=== PATIENT | male | born 1935 | race Caucasian/White ===

== ENCOUNTER 2020-07-04 21:14 | Inpatient (IN) | payer MEDICARE ==
[2020-07-04] MEDS ORDERED: Ondansetron ODT 4 MG TAB PO PRN (22:28)
[2020-07-04] MEDS ORDERED: Aspirin 81 mg Enteric Coated Tablet PO SCH (22:30)
[2020-07-04] MEDS ORDERED: lamoTRIgine 25 MG TAB PO SCH (22:30)
[2020-07-05] MEDS: Acetaminophen 325 MG TAB PO SCH ×4 (01:04→17:45)
[2020-07-05 05:28] LABS: #Lymphocytes 1.3 thou/uL (1.20-3.40); #Monocytes 0.8 thou/uL (0.11-0.59); %Basophils 0.5 % (0.0-1.0); %Eosinophils 0.5 % (0.0-10.0); %Lymphocytes 15.6 % (21.0-51.0); %Monocytes 9.7 % (0.0-10.0); %Neutrophils 73.6 % (42.0-75.0); Hemoglobin 8.9 g/dL (14.0-18.0); Mean Corpuscular HGB CONC 33.5 g/dL (32.0-36.0); Mean Corpuscular Volume 95.6 fL (78.0-98.0); Mean Platelet Volume 6.8 fL (7.4-10.4); Platelet Count 200 thou/uL (130-400); RBC Distribution Width 13.1 % (11.5-14.5); Red Blood Cell (RBC) Count 2.79 mill/uL (4.70-6.10); White Blood Cell (WBC) Count 8.1 thou/uL (4.8-10.8)
[2020-07-05 05:43] LABS: ALT (SGPT) 15 U/L (8-55); AST (SGOT) 39 U/L (5-34); Albumin 3.1 g/dL (3.4-4.8); Alkaline Phosphatase 61 U/L (40-110); Anion Gap 14 mmol/L (10-20); BUN (Urea Nitrogen) 25 mg/dL (8.4-25.7); Bilirubin, Total 0.8 mg/dL (0.2-1.2); Calc. Creatinine Clearance 58 mL/min (70-130); Calcium 8.5 mg/dL (7.8-10.44); Carbon Dioxide 24 mmol/L (23-31); Chloride 102 mmol/L (98-107); Globulin 2.8 g/dL (2.4-3.5); Glucose 98 mg/dL (83-110); Potassium 4.1 mmol/L (3.5-5.1); Protein, Total 5.9 g/dL (5.8-8.1); Sodium 136 mmol/L (136-145)
[2020-07-05] MEDS: Amlodipine 5 MG TAB PO SCH (09:45)
[2020-07-05] MEDS: Cyanocobalamin (Vitamin B-12) 1,000 MCG TAB PO SCH (09:46)
[2020-07-05] MEDS: Cholecalciferol 1,000 UNITS (25 MCG) TAB PO SCH (09:46)
[2020-07-05] MEDS: Folic Acid 1 MG TAB PO SCH (09:46)
[2020-07-05] MEDS: lamoTRIgine 25 MG TAB PO SCH ×2 (09:46→20:26)
[2020-07-05] MEDS: Aspirin 81 mg Enteric Coated Tablet PO SCH ×2 (09:46→20:26)
[2020-07-05] MEDS: Metoprolol Tartrate 25 MG TAB PO SCH (09:47)
[2020-07-05] MEDS: Multivitamin W/ Minerals 1 TAB PO SCH (09:47)
[2020-07-05] MEDS: pyridOXINE 50 MG (B6) TAB PO SCH (09:47)
--- NOTE | 2020-07-05 14:22 | HP ---
PRINCIPAL DIAGNOSIS: Right hip fracture, status post surgical fixation, for therapy. BRIEF HISTORY: Mr. Louie is an 85-year-old patient of mine from [facility], apparently had a fall about a week prior to admission to the hospital. At that time, he did not complain of any pain and his post fall followup protocol apparently was unremarkable. The patient was not eating or drinking well and we did basic labs, which were unremarkable. We even gave him a couple of liters of IV fluids, which did not help. His urine culture was negative, but then he apparently started complaining of hip pain, and so he was sent to the hospital for evaluation. In the hospital, he was diagnosed with right intertrochanteric hip fracture and underwent surgical fixation. He was felt to be a candidate for therapy before he returns to [facility] and so has been brought here. Currently, he is somnolent and sleeping. His daughter is in the room. She states that he was up all day yesterday, ate all his food, he is normally on a mechanically soft diet, but he needs assistance with feeding, and so she is kind of surprised that he is feeling this way. I did advise her that he did come here late last night and not sure if it may be the Seroquel that he got late, but we will continue to monitor him. We did make him n.p.o. just because he did not swallow any of his scrambled eggs this morning, but the daughter wants to sign a waiver if Speech Therapy states that he needs to remain n.p.o. She is agreeable for a pureed diet. PAST MEDICAL HISTORY: 1. Hypertension. 2. Gastroesophageal reflux disease. 3. Dementia. 4. Hearing loss. 5. Generalized weakness. PAST SURGICAL HISTORY: Cervical spine surgery and then now recent right hip intertrochanteric intramedullary nailing. ALLERGIES: TO ARICEPT AND LORAZEPAM. FAMILY HISTORY: Noncontributory to current admission. PSYCHOSOCIAL HISTORY: He currently is a resident at [facility]. No alcohol, tobacco, or recreational drug abuse. He is a DNR. His daughter who is a dairy department manager is his medical POA. REVIEW OF SYSTEMS: The patient is somnolent, and I am not sure how accurate this is, but, GENERAL: The patient has no documented fever, chills, weight loss or weight gain or change in appetite. CARDIOVASCULAR SYSTEM: Denies any chest pain, shortness of breath, palpitations, PND, orthopnea, or pedal edema. RESPIRATORY SYSTEM: Denies any chronic cough, expectoration, or pleuritic-type chest pain. GASTROINTESTINAL SYSTEM: Denies any nausea, vomiting, diarrhea, constipation, hematemesis, melena, or hematochezia. GENITOURINARY SYSTEM: Denies any frequency, urgency, dysuria, or hematuria. CENTRAL NERVOUS SYSTEM: Cognitive deficits, generalized weakness. Otherwise, nonfocal. EXTREMITIES: Occasional joint pain. Currently, does have right hip and leg pain. SKIN: Denies any rash. ENT: So far, daughter states no issues with speech, vision, hearing, or swallowing, no changes. He has chronic hearing loss on the right. MEDICATIONS: He has been sent here on the following medications; 1. Tylenol 650 q.6 scheduled. 2. Norvasc 5 mg daily. 3. Ecotrin 81 mg b.i.d. 4. Vitamin D3, 1000 international units daily. 5. Celexa 20 daily. 6. Vitamin B12, 1000 mcg daily. 7. Folic acid 1 mg daily. 8. Ibuprofen 400 mg q.8 p.r.n. 9. Lamictal 50 mg b.i.d. 10. Levaquin 250 daily, I need to find out the duration. 11. Namenda 10 mg b.i.d. 12. Lopressor 25 daily. 13. Zofran ODT 4 mg q.6 p.r.n. 14. Protonix 40 daily. 15. Pyridoxine 50 mg daily. 16. Seroquel 50 mg at bedtime. 17. Tramadol 100 mg q.6 p.r.n. for pain, 7-10. PHYSICAL EXAMINATION: GENERAL: This is a pleasant, 85-year-old male, who is somnolent, but arousable. He is pleasantly confused. His daughter is in the room. VITAL SIGNS: He is afebrile. Heart rate 72, respirations 18, oxygen saturation 93% on room air and it did drop down to 89, so they did place him on 2 L of oxygen. Blood pressure 155/74. HEENT: Normocephalic and atraumatic. Pupils are equally reactive to light and accommodation. Arcus senilis is present. No JVD, thyromegaly, cervical myopathy, or throat exudates. No carotid bruits. Oropharyngeal mucosa is dry, mostly from his mouth breathing. CARDIOVASCULAR SYSTEM: S1 and S2 plus, rate and rhythm regular. RESPIRATORY SYSTEM: Normal vesicular breath sounds heard in all lung king. ABDOMEN: Soft and nontender. Bowel sounds heard in all quadrants. EXTREMITIES: Without cyanosis or clubbing. Hip incision with dressing. CENTRAL NERVOUS SYSTEM: Somnolent, but arousable. Cognitive deficits present. Generalized weakness. LABORATORY VALUES: White count is 8.1, hemoglobin and hematocrit are 8.9 and 26.6. Sodium 136, potassium 4.1, BUN and creatinine are 25 and 0.84. IMPRESSION: 1. Right hip fracture, status post surgical fixation. 2. Hypertension. 3. Dementia. 4. Deconditioning. 5. He is on antibiotics, but I do not see anything on the documentation as to why he is on. 6. Depression and anxiety. PLAN: 1. Continue current medications. 2. Nutritional support with aspiration precautions. 3. Speech Therapy evaluation. 4. Titrate oxygen as tolerated. 5. Orthopedic precautions and incision care. 6. Decubitus precaution. 7. Stress ulcer prophylaxis. 8. PT and OT eval and treat. 9. Routine laboratory values. 10. DNR status. 11. Discussed with the patient's daughter in detail who is the medical power of employee benefits attorney and all questions answered. Job ID: [id number]
[2020-07-05] MEDS: traMADol HCl 50 MG TAB PO PRN (19:22)
[2020-07-06] MEDS: Acetaminophen 325 MG TAB PO SCH ×4 (00:30→17:32)
[2020-07-06] MEDS: Aspirin 81 mg Enteric Coated Tablet PO SCH ×2 (09:28→20:09)
[2020-07-06] MEDS: Amlodipine 5 MG TAB PO SCH (09:28)
[2020-07-06] MEDS: pyridOXINE 50 MG (B6) TAB PO SCH (09:29)
[2020-07-06] MEDS: Cyanocobalamin (Vitamin B-12) 1,000 MCG TAB PO SCH (09:29)
[2020-07-06] MEDS: lamoTRIgine 25 MG TAB PO SCH ×2 (09:29→20:09)
[2020-07-06] MEDS: Metoprolol Tartrate 25 MG TAB PO SCH (09:29)
[2020-07-06] MEDS: Multivitamin W/ Minerals 1 TAB PO SCH (09:29)
[2020-07-06] MEDS: Cholecalciferol 1,000 UNITS (25 MCG) TAB PO SCH (09:29)
[2020-07-06] MEDS: Folic Acid 1 MG TAB PO SCH (09:29)
[2020-07-06] MEDS: traMADol HCl 50 MG TAB PO PRN ×2 (12:47→20:08)
--- NOTE | 2020-07-06 14:11 | PRG ---
DATE OF SERVICE: 07/06/2020 SUBJECTIVE: Mr. Louie is much more awake and responsive. Apparently, he is also more aggressive. He is now tolerating a chopped mechanically soft diet. Discussed with his daughter. Plan is to start Seroquel 25 mg in the morning for his agitation and continue the 50 at night. Apparently, also stated that they will allow therapist to the facility. OBJECTIVE: VITAL SIGNS: He is afebrile, heart rate 70, respirations 16, oxygen saturation 93% on room air, blood pressure 147/70. This is after his blood pressure medicines. When he was agitated, it was 202/109 . CARDIOVASCULAR: S1 and S2 plus. RESPIRATORY: Normal vesicular breath sounds. ABDOMEN: Soft and nontender. Bowel sounds heard in all quadrants. EXTREMITIES: Without cyanosis or clubbing. Hip incision with dressing. CENTRAL NERVOUS SYSTEM: Cognitive deficits are present. Generalized weakness, otherwise nonfocal. IMPRESSION: 1. Right hip fracture, status post surgical fixation. 2. Hypertension. 3. Gastroesophageal reflux disease. 4. Dementia. 5. Depression and anxiety. 6. Deconditioning. 7. History of hearing loss. PLAN: 1. Continue current medications, but add Seroquel 25 mg in the morning. 2. Nutritional support. 3. Aspiration precautions. 4. Physical therapy. 5. Orthopedic precautions and incision care. 6. DVT prophylaxis per Orthopedic recommendations. 7. Decubitus precautions. 8. Stress ulcer prophylaxis. 9. Routine laboratory values. 10. Discussed with daughter and nursing in detail. All questions answered. Job ID: [id number]
[2020-07-07] MEDS: Acetaminophen 325 MG TAB PO SCH ×4 (00:53→17:06)
--- NOTE | 2020-07-07 08:26 | PRG ---
DATE OF SERVICE: 07/07/2020 SUBJECTIVE: Mr. Louie is up in bed and getting ready to eat breakfast. He apparently slept well. He denies any questions or concerns. No documentation of agitation. OBJECTIVE: VITAL SIGNS: He is afebrile. Heart rate 71, respirations 18, oxygen saturation 93% on room air, blood pressure 130/61. CARDIOVASCULAR SYSTEM: S1 and S2 plus. RESPIRATORY SYSTEM: Normal vesicular breath sounds. ABDOMEN: Soft and nontender. Bowel sounds heard in all quadrants. EXTREMITIES: Without cyanosis or clubbing. Right hip incision with dressing. CENTRAL NERVOUS SYSTEM: Generalized weakness, otherwise nonfocal. Cognitive deficits are present. IMPRESSION: 1. Right hip fracture, status post surgical fixation. 2. Hypertension. 3. Gastroesophageal reflux disease. 4. Dementia. 5. Anxiety and depression. 6. Deconditioning. 7. Hearing loss. PLAN: 1. Continue current medications. 2. Trial of Seroquel 25 mg in the morning to see if we can avoid the agitation. 3. Continue therapy. 4. Orthopedic precautions and incision care. 5. Routine laboratory values. 6. DVT prophylaxis per Ortho recommendations. 7. Decubitus precautions. 8. Stress ulcer prophylaxis nine. 9. Aspiration precautions. 10. Dr. Contreras on-call this weekend. 11. Daughter not at bedside. Job ID: [id number]
[2020-07-07] MEDS: Aspirin 81 mg Enteric Coated Tablet PO SCH ×2 (08:44→19:59)
[2020-07-07] MEDS: Multivitamin W/ Minerals 1 TAB PO SCH (08:45)
[2020-07-07] MEDS: pyridOXINE 50 MG (B6) TAB PO SCH (08:45)
[2020-07-07] MEDS: Metoprolol Tartrate 25 MG TAB PO SCH (08:45)
[2020-07-07] MEDS: Cyanocobalamin (Vitamin B-12) 1,000 MCG TAB PO SCH (08:45)
[2020-07-07] MEDS: Amlodipine 5 MG TAB PO SCH (08:46)
[2020-07-07] MEDS: lamoTRIgine 25 MG TAB PO SCH ×2 (08:46→19:59)
[2020-07-07] MEDS: Folic Acid 1 MG TAB PO SCH (08:46)
[2020-07-07] MEDS: Cholecalciferol 1,000 UNITS (25 MCG) TAB PO SCH (08:47)
[2020-07-07] MEDS: Citalopram 20 MG TAB PO SCH (09:58)
[2020-07-07] MEDS: traMADol HCl 50 MG TAB PO PRN (19:58)
[2020-07-08] MEDS: Acetaminophen 325 MG TAB PO SCH ×4 (01:09→17:54)
[2020-07-08] MEDS: Metoprolol Tartrate 25 MG TAB PO SCH (09:35)
[2020-07-08] MEDS: Citalopram 20 MG TAB PO SCH ×2 (09:35→09:59)
[2020-07-08] MEDS: Cyanocobalamin (Vitamin B-12) 1,000 MCG TAB PO SCH (09:36)
[2020-07-08] MEDS: Multivitamin W/ Minerals 1 TAB PO SCH (09:36)
[2020-07-08] MEDS: Cholecalciferol 1,000 UNITS (25 MCG) TAB PO SCH (09:36)
[2020-07-08] MEDS: Amlodipine 5 MG TAB PO SCH (09:36)
[2020-07-08] MEDS: pyridOXINE 50 MG (B6) TAB PO SCH (09:36)
[2020-07-08] MEDS: Folic Acid 1 MG TAB PO SCH (09:36)
[2020-07-08] MEDS: Aspirin 81 mg Enteric Coated Tablet PO SCH ×2 (09:36→20:27)
[2020-07-08] MEDS: lamoTRIgine 25 MG TAB PO SCH ×2 (09:36→20:28)
--- NOTE | 2020-07-08 10:27 | PRG ---
DATE OF SERVICE: 07/08/2020 SUBJECTIVE: Mr. Louie is lying in bed, in no acute distress. Nursing reported that he was combative last night with the nurses aide and with nursing staff. He had to be reoriented and redirected to not be aggressive. The patient is already on Seroquel 50, but seems to still be having combativeness at night. We will switch to Seroquel 100 at night, leave 25 mg during the day, max dose is 150 per day. OBJECTIVE: VITAL SIGNS: Temperature 98.3, pulse 69 to 74, respiratory rate 18, O2 sats 94% on room air, blood pressure 137/76 to 145/75. GENERAL: Well-appearing, frail 85-year-old male, lying in bed, in no acute distress. CARDIOVASCULAR: Regular rate and rhythm. No murmurs, gallops, or rubs. RESPIRATORY: Clear to auscultation bilaterally. No wheezes or rhonchi. ABDOMEN: Soft, nontender to palpation. Bowel sounds positive in all 4 quadrants. EXTREMITIES: No cyanosis. No clubbing. No rashes seen. IMAGING SCHEDULER: Baseline cognitive deficits. IMPRESSION: 1. Right hip fracture, status post open reduction and internal fixation. 2. Hypertension. 3. Gastroesophageal reflux disease. 4. Dementia. 5. Anxiety and depression. 6. Deconditioning. 7. Hearing loss. PLAN: 1. Continue current medications. We will switch quetiapine to 50 at night with 50 in the morning; however, may switch to a higher dose with a lesser dose at night depending on when the patient's aggression reappears. Continue to monitor. 2. Continue therapy. 3. Orthopedic precautions and incision care. 4. Routine laboratory values. 5. DVT prophylaxis per Ortho's recommendations. 6. Decubitus precautions. 7. Stress ulcer prophylaxis. 8. Aspiration precautions. Job ID: [id number] [facility]
[2020-07-08] MEDS: traMADol HCl 50 MG TAB PO PRN (20:27)
[2020-07-09] MEDS: Acetaminophen 325 MG TAB PO SCH ×4 (01:27→18:05)
[2020-07-09] MEDS: Multivitamin W/ Minerals 1 TAB PO SCH (08:52)
[2020-07-09] MEDS: Citalopram 20 MG TAB PO SCH (08:53)
[2020-07-09] MEDS: Aspirin 81 mg Enteric Coated Tablet PO SCH ×2 (08:53→20:53)
[2020-07-09] MEDS: lamoTRIgine 25 MG TAB PO SCH ×2 (08:53→20:53)
[2020-07-09] MEDS: Folic Acid 1 MG TAB PO SCH (08:53)
[2020-07-09] MEDS: Cholecalciferol 1,000 UNITS (25 MCG) TAB PO SCH (08:53)
[2020-07-09] MEDS: Metoprolol Tartrate 25 MG TAB PO SCH (08:53)
[2020-07-09] MEDS: Cyanocobalamin (Vitamin B-12) 1,000 MCG TAB PO SCH (08:53)
[2020-07-09] MEDS: Amlodipine 5 MG TAB PO SCH (08:53)
[2020-07-09] MEDS: pyridOXINE 50 MG (B6) TAB PO SCH (08:53)
--- NOTE | 2020-07-09 11:18 | PRG ---
DATE OF SERVICE: 07/09/2020 SUBJECTIVE: The patient again overnight is combative with nursing staff and instructor of nursing. We will adjust the timing of his medication as well as increase it to 75 mg to help with this behavioral problem. OBJECTIVE: VITAL SIGNS: Temperature 97.2, pulse 74, respirations 18, O2 sats 93% on room air, blood pressure 160/73. GENERAL: Well-appearing frail 85-year-old male lying in bed, no acute distress. CARDIOVASCULAR: Regular rate and rhythm. No murmurs, gallops, or rubs. RESPIRATORY: Clear to auscultation bilaterally. No wheezes or rhonchi. ABDOMEN: Soft, nontender to palpation. Bowel sounds positive in all four quadrants. No masses. NEUROLOGIC: Central nervous system baseline cognitive deficits. IMPRESSION: 1. Right hip fracture status post open reduction internal fixation. 2. Hypertension. 3. Gastroesophageal reflux disease. 4. Dementia. 5. Anxiety, depression. 6. Deconditioning. 7. Hearing loss. PLAN: 1. Continue current medications. We will switch nighttime quetiapine to 1800 hours as well as increasing to 75 mg. Continue with 50 mg in a.m. 2. Continue therapy. 3. Orthopedic precautions and incision care. 4. Routine laboratory values. 5. DVT prophylaxis. 6. Decubitus precautions. 7. Stress ulcer prophylaxis. 8. Aspiration precautions. Job ID: [id number]
[2020-07-09] MEDS: traMADol HCl 50 MG TAB PO PRN (20:52)
[2020-07-10] MEDS: Acetaminophen 325 MG TAB PO SCH ×5 (02:04→22:23)
[2020-07-10] MEDS: Cholecalciferol 1,000 UNITS (25 MCG) TAB PO SCH (08:38)
[2020-07-10] MEDS: Amlodipine 5 MG TAB PO SCH (08:38)
[2020-07-10] MEDS: Aspirin 81 mg Enteric Coated Tablet PO SCH ×2 (08:38→22:25)
[2020-07-10] MEDS: lamoTRIgine 25 MG TAB PO SCH ×2 (08:39→22:25)
[2020-07-10] MEDS: Cyanocobalamin (Vitamin B-12) 1,000 MCG TAB PO SCH (08:39)
[2020-07-10] MEDS: Citalopram 20 MG TAB PO SCH (08:39)
[2020-07-10] MEDS: Folic Acid 1 MG TAB PO SCH (08:39)
[2020-07-10] MEDS: pyridOXINE 50 MG (B6) TAB PO SCH (08:40)
[2020-07-10] MEDS: Metoprolol Tartrate 25 MG TAB PO SCH (08:40)
[2020-07-10] MEDS: Multivitamin W/ Minerals 1 TAB PO SCH (08:40)
--- NOTE | 2020-07-10 12:30 | PRG ---
DATE OF SERVICE: 07/10/2020 SUBJECTIVE: Mr. Louie is doing well. His Seroquel needed to be increased by Dr. Contreras over the weekend due to episodes of agitation. He is seen on his way to therapy. He apparently is eating well when fed. Discussed with nursing. OBJECTIVE: VITAL SIGNS: He is afebrile. Heart rate 81, respirations 20, oxygen saturation 89% on room air, but rechecked it, it was 93%, blood pressure was 176/83. It has not been rechecked. I advised them to recheck it once he gets back from therapy. CARDIOVASCULAR SYSTEM: S1 and S2 plus. RESPIRATORY SYSTEM: Normal vesicular breath sounds. ABDOMEN: Soft, nontender. Bowel sounds heard in all quadrants. EXTREMITIES: Without cyanosis or clubbing. CENTRAL NERVOUS SYSTEM: Cognitive deficits, otherwise nonfocal. IMPRESSION: 1. Right hip fracture, status post surgical fixation. 2. Hypertension. 3. Gastroesophageal reflux disease. 4. Dementia. 5. Anxiety and depression. 6. Deconditioning. PLAN: 1. Continue current medications. 2. Physical therapy. 3. Nutritional support. 4. Fall precautions. 5. Orthopedic precautions. 6. Routine laboratory values. 7. Monitor cognition and behaviors. Job ID: [id number]
[2020-07-11] MEDS: Acetaminophen 325 MG TAB PO SCH ×4 (06:30→23:08)
[2020-07-11] MEDS: Amlodipine 5 MG TAB PO SCH (08:42)
[2020-07-11] MEDS: Aspirin 81 mg Enteric Coated Tablet PO SCH ×2 (08:44→21:10)
[2020-07-11] MEDS: Cyanocobalamin (Vitamin B-12) 1,000 MCG TAB PO SCH (08:45)
[2020-07-11] MEDS: Folic Acid 1 MG TAB PO SCH (08:45)
[2020-07-11] MEDS: Cholecalciferol 1,000 UNITS (25 MCG) TAB PO SCH (08:45)
[2020-07-11] MEDS: Citalopram 20 MG TAB PO SCH (08:45)
[2020-07-11] MEDS: lamoTRIgine 25 MG TAB PO SCH ×2 (08:46→21:11)
[2020-07-11] MEDS: pyridOXINE 50 MG (B6) TAB PO SCH (08:46)
[2020-07-11] MEDS: Multivitamin W/ Minerals 1 TAB PO SCH (08:46)
[2020-07-11] MEDS: Metoprolol Tartrate 25 MG TAB PO SCH (08:46)
--- NOTE | 2020-07-11 13:42 | PRG ---
DATE OF SERVICE: 07/11/2020 SUBJECTIVE: Mr. Louie is resting in bed. He apparently fed himself. He has been doing better with Therapy per nursing. Agitation is also improving. OBJECTIVE: VITAL SIGNS: He is afebrile, heart rate 61, respirations 18, oxygen saturation 94% on room air, and blood pressure 168/80. CARDIOVASCULAR SYSTEM: S1 and S2 plus. RESPIRATORY SYSTEM: Normal vesicular breath sounds. ABDOMEN: Soft and nontender. Bowel sounds heard in all quadrants. EXTREMITIES: Without cyanosis or clubbing. CENTRAL NERVOUS SYSTEM: Generalized weakness, otherwise nonfocal. IMPRESSION: 1. Hip incision is healthy from right hip fracture status post surgical fixation. 2. Dementia. 3. Depression and anxiety. 4. Gastroesophageal reflux disease. 5. Hearing loss. PLAN: 1. Continue current medications. 2. Nutritional support. 3. Orthopedic precautions. 4. DVT prophylaxis, PlexiPulses. 5. Decubitus precautions. 6. Stress ulcer prophylaxis. 7. Therapy. 8. Routine laboratory values. Job ID: [id number]
[2020-07-11] MEDS: Milk Of Magnesia 30 ML UDCUP PO PRN (14:33)
[2020-07-12] MEDS: Acetaminophen 325 MG TAB PO SCH ×4 (05:32→23:15)
[2020-07-12] MEDS: pyridOXINE 50 MG (B6) TAB PO SCH (08:59)
[2020-07-12] MEDS: Citalopram 20 MG TAB PO SCH (08:59)
[2020-07-12] MEDS: Aspirin 81 mg Enteric Coated Tablet PO SCH ×2 (08:59→20:36)
[2020-07-12] MEDS: Multivitamin W/ Minerals 1 TAB PO SCH (08:59)
[2020-07-12] MEDS: Cholecalciferol 1,000 UNITS (25 MCG) TAB PO SCH (08:59)
[2020-07-12] MEDS: Amlodipine 5 MG TAB PO SCH (08:59)
[2020-07-12] MEDS: Metoprolol Tartrate 25 MG TAB PO SCH (08:59)
[2020-07-12] MEDS: Cyanocobalamin (Vitamin B-12) 1,000 MCG TAB PO SCH (08:59)
[2020-07-12] MEDS: lamoTRIgine 25 MG TAB PO SCH ×2 (09:00→20:37)
[2020-07-12] MEDS: Folic Acid 1 MG TAB PO SCH (09:00)
--- NOTE | 2020-07-12 13:11 | PRG ---
DATE OF SERVICE: 07/12/2020 SUBJECTIVE: Mr. Louie is resting in bed. He denies any complaints. Apparently, he is participating with therapy, but they are noticing some orthostasis. I will start him on JANINE hose and will switch his amlodipine to bedtime and see if that helps. OBJECTIVE: VITAL SIGNS: He is afebrile. Heart rate 68, respirations 18, oxygen saturation 97% on room air, blood pressure 164/80. CARDIOVASCULAR: S1 and S2 plus. RESPIRATORY: Normal vesicular breath sounds. ABDOMEN: Soft, nontender. Bowel sounds heard in all quadrants. EXTREMITIES: Without cyanosis or clubbing. Hip incision is healthy. CENTRAL NERVOUS SYSTEM: Cognitive deficits, generalized weakness. Otherwise, nonfocal. IMPRESSION: 1. Right hip fracture, status post surgical fixation. 2. Dementia. 3. Depression and anxiety. 4. Hypertension. 5. Orthostasis. 6. Gastroesophageal reflux disease. 7. Hearing loss, chronic. PLAN: 1. Thigh-high JANINE hose while awake. 2. Continue current medications, but did give amlodipine at night. 3. Orthopedic precautions. 4. DVT prophylaxis with PlexiPulses. 5. Decubitus precautions. 6. Stress ulcer prophylaxis. 7. Routine laboratory values. 8. Continue therapy. 9. Discharge planning. Job ID: [id number]
[2020-07-13] MEDS: Acetaminophen 325 MG TAB PO SCH ×3 (05:34→17:28)
[2020-07-13] MEDS: Aspirin 81 mg Enteric Coated Tablet PO SCH ×2 (08:56→21:04)
[2020-07-13] MEDS: lamoTRIgine 25 MG TAB PO SCH ×2 (08:56→21:02)
[2020-07-13] MEDS: Cholecalciferol 1,000 UNITS (25 MCG) TAB PO SCH (08:57)
[2020-07-13] MEDS: Folic Acid 1 MG TAB PO SCH (08:57)
[2020-07-13] MEDS: Citalopram 20 MG TAB PO SCH (08:57)
[2020-07-13] MEDS: Metoprolol Tartrate 25 MG TAB PO SCH (08:57)
[2020-07-13] MEDS: Multivitamin W/ Minerals 1 TAB PO SCH (08:58)
[2020-07-13] MEDS: Cyanocobalamin (Vitamin B-12) 1,000 MCG TAB PO SCH (08:58)
[2020-07-13] MEDS: pyridOXINE 50 MG (B6) TAB PO SCH (08:58)
--- NOTE | 2020-07-13 12:56 | PRG ---
DATE OF SERVICE: 07/13/2020 SUBJECTIVE: Mr. Louie is up in his chair, eating lunch. He apparently walked with therapy today, took a few steps. His family friend is in the room and happy with his progress. Discussed with nursing, and apparently, he is still getting significant agitation at night. Plan is to move his 75 mg Seroquel dose from 6 p.m. to 4 p.m. and then give him another 50 mg dose at 10 p.m. and see how he does. Family friend is agreeable. OBJECTIVE: VITAL SIGNS: He is afebrile, heart rate 69, respirations 20, oxygen saturation 95% on room air. His blood pressure is marked as 199/95. I will ask them to recheck it. I have told them to redo it any time the blood pressure reads high to make sure that it is coming back to normal or if it remains elevated, so we can make appropriate changes. CARDIOVASCULAR SYSTEM: S1 and S2 plus. RESPIRATORY SYSTEM: Normal vesicular breath sounds. ABDOMEN: Soft, nontender. Bowel sounds heard in all quadrants. EXTREMITIES: Without cyanosis or clubbing. Hip incision is healthy. CENTRAL NERVOUS SYSTEM: Generalized weakness, cognitive deficits, otherwise nonfocal. IMPRESSION: 1. Right hip fracture, status post surgical fixation. 2. Hypertension. We will have nursing check blood pressure at least three times a day. 3. Dementia. 4. Depression and anxiety. 5. Gastroesophageal reflux disease. PLAN: 1. Change timing on Seroquel. Otherwise, continue current medications. 2. Place an order to have nursing check the blood pressure every shift. 3. Continue therapy. 4. Orthopedic precautions. 5. DVT prophylaxis with PlexiPulses and JANINE hose. 6. Routine laboratory values. 7. Encourage p.o. intake. 8. Discharge planning. 9. Discussed with family and nursing. Job ID: [id number]
[2020-07-13] MEDS: Amlodipine 5 MG TAB PO SCH (21:01)
[2020-07-14] MEDS: Acetaminophen 325 MG TAB PO SCH ×4 (00:37→17:11)
[2020-07-14] MEDS: lamoTRIgine 25 MG TAB PO SCH ×2 (09:51→21:39)
[2020-07-14] MEDS: Aspirin 81 mg Enteric Coated Tablet PO SCH ×2 (09:51→21:40)
[2020-07-14] MEDS: pyridOXINE 50 MG (B6) TAB PO SCH (09:52)
[2020-07-14] MEDS: Milk Of Magnesia 30 ML UDCUP PO PRN (09:53)
[2020-07-14] MEDS: Metoprolol Tartrate 25 MG TAB PO SCH (09:53)
[2020-07-14] MEDS: Cyanocobalamin (Vitamin B-12) 1,000 MCG TAB PO SCH (09:53)
[2020-07-14] MEDS: Folic Acid 1 MG TAB PO SCH (09:53)
[2020-07-14] MEDS: Multivitamin W/ Minerals 1 TAB PO SCH (09:53)
[2020-07-14] MEDS: Cholecalciferol 1,000 UNITS (25 MCG) TAB PO SCH (09:53)
[2020-07-14] MEDS: Citalopram 20 MG TAB PO SCH (09:53)
[2020-07-14] MEDS: Amlodipine 5 MG TAB PO SCH (21:40)
[2020-07-14] MEDS: Ibuprofen 200 MG TAB PO PRN (21:40)
[2020-07-15] MEDS: Acetaminophen 325 MG TAB PO SCH ×4 (00:50→17:09)
[2020-07-15] MEDS: Citalopram 20 MG TAB PO SCH (08:46)
[2020-07-15] MEDS: Cholecalciferol 1,000 UNITS (25 MCG) TAB PO SCH (08:46)
[2020-07-15] MEDS: Aspirin 81 mg Enteric Coated Tablet PO SCH ×2 (08:46→21:29)
[2020-07-15] MEDS: Cyanocobalamin (Vitamin B-12) 1,000 MCG TAB PO SCH (08:47)
[2020-07-15] MEDS: Multivitamin W/ Minerals 1 TAB PO SCH (08:47)
[2020-07-15] MEDS: Metoprolol Tartrate 25 MG TAB PO SCH (08:47)
[2020-07-15] MEDS: Folic Acid 1 MG TAB PO SCH (08:47)
[2020-07-15] MEDS: pyridOXINE 50 MG (B6) TAB PO SCH (08:47)
[2020-07-15] MEDS: lamoTRIgine 25 MG TAB PO SCH ×2 (08:47→21:29)
[2020-07-15] MEDS ORDERED: Amlodipine 5 MG TAB ONE (21:18)
[2020-07-15] MEDS: Amlodipine 5 MG TAB PO SCH (21:30)
[2020-07-15] MEDS: Ibuprofen 200 MG TAB PO PRN (21:34)
[2020-07-16] MEDS: Acetaminophen 325 MG TAB PO SCH ×4 (01:54→17:39)
--- NOTE | 2020-07-16 05:10 | PRG ---
DATE OF SERVICE: 07/15/2020 SUBJECTIVE: Mr. Louie is resting in bed and denies any concerns. He remains pleasantly confused. No family at bedside. Plan is to discharge him on Friday, apparently daughter wants a hospital bed. The patient does qualify for a hospital bed. He has a right hip fracture and he needs to be positioned in ways which is not feasible with the regular bed. I think a hospital bed will also allow him to get in and out of bed because of the height adjustment. He does not need to have his head end of bed elevated nor his legs due to edema. Consider this note as a [id number] documentation for the hospital bed. OBJECTIVE: VITAL SIGNS: He is afebrile. Heart rate 61, respirations 20, oxygen saturation 94% on room air, blood pressure 175/83. Again, this was done this morning prior to him getting his medications. I am not sure why they are not rechecking his blood pressure. CARDIOVASCULAR: S1 and S2 plus. RESPIRATORY: Normal vesicular breath sounds. ABDOMEN: Soft, nontender. Bowel sounds heard in all quadrants. EXTREMITIES: Without cyanosis or clubbing. Hip incision with dressing. CENTRAL NERVOUS SYSTEM: Generalized weakness, cognitive deficits, otherwise nonfocal. IMPRESSION: 1. Right hip fracture, status post surgical fixation. 2. Dementia. 3. Hypertension. 4. Chronic hearing loss. 5. Improving deconditioning. 6. Gastroesophageal reflux disease. PLAN: 1. Continue current medications. 2. Nutritional support with heart healthy diet. 3. Aspiration precautions just given his age and cognitive dysfunction. 4. DVT prophylaxis with PlexiPulses. 5. Decubitus precautions. 6. Stress ulcer prophylaxis. 7. Discharge planning. Job ID: [id number]
[2020-07-16] MEDS: Citalopram 20 MG TAB PO SCH (08:55)
[2020-07-16] MEDS: Aspirin 81 mg Enteric Coated Tablet PO SCH ×2 (08:55→20:33)
[2020-07-16] MEDS: Cyanocobalamin (Vitamin B-12) 1,000 MCG TAB PO SCH (08:55)
[2020-07-16] MEDS: Folic Acid 1 MG TAB PO SCH (08:55)
[2020-07-16] MEDS: Cholecalciferol 1,000 UNITS (25 MCG) TAB PO SCH (08:55)
[2020-07-16] MEDS: lamoTRIgine 25 MG TAB PO SCH ×2 (08:55→20:33)
[2020-07-16] MEDS: Metoprolol Tartrate 25 MG TAB PO SCH (08:56)
[2020-07-16] MEDS: Multivitamin W/ Minerals 1 TAB PO SCH (08:56)
[2020-07-16] MEDS: pyridOXINE 50 MG (B6) TAB PO SCH (08:56)
--- NOTE | 2020-07-16 15:58 | PRG ---
DATE OF SERVICE: 07/16/2020 SUBJECTIVE: Mr. Louie is resting in bed. He apparently is having spells of agitation. He is still voiding on the floor. No family at bedside. Plan is for him to be discharged on Friday. I am going to check with his [facility] to see if they will allow hospital bed as daughter wants him to have. OBJECTIVE: VITAL SIGNS: He is afebrile, heart rate 63, respirations 20, oxygen saturation 93% on room air, and blood pressure documented this morning before his medicines is 194/91. CARDIOVASCULAR SYSTEM: S1 and S2 plus. RESPIRATORY SYSTEM: Normal vesicular breath sounds. ABDOMEN: Soft, nontender. Bowel sounds heard in all quadrants. EXTREMITIES: Without cyanosis or clubbing. CENTRAL NERVOUS SYSTEM: No change. IMPRESSION: 1. Right hip fracture, status post surgical fixation. 2. Hypertension. 3. Dementia. 4. Improving deconditioning. 5. Gastroesophageal reflux disease. PLAN: 1. Continue current medications. 2. Nutritional support with heart-healthy diet. 3. DVT prophylaxis with PlexiPulses. 4. Decubitus precautions. 5. Stress ulcer prophylaxis. 6. Discharge planning. 7. No family at bedside. Job ID: [id number]
[2020-07-16] MEDS: Milk Of Magnesia 30 ML UDCUP PO PRN (16:04)
[2020-07-16] MEDS: Amlodipine 5 MG TAB PO SCH (20:32)
[2020-07-16] MEDS: Ibuprofen 200 MG TAB PO PRN (20:32)
[2020-07-17] MEDS: Acetaminophen 325 MG TAB PO SCH ×4 (06:30→17:00)
[2020-07-17] MEDS: Cyanocobalamin (Vitamin B-12) 1,000 MCG TAB PO SCH (09:10)
[2020-07-17] MEDS: lamoTRIgine 25 MG TAB PO SCH ×2 (09:10→20:42)
[2020-07-17] MEDS: pyridOXINE 50 MG (B6) TAB PO SCH (09:10)
[2020-07-17] MEDS: Cholecalciferol 1,000 UNITS (25 MCG) TAB PO SCH (09:10)
[2020-07-17] MEDS: Folic Acid 1 MG TAB PO SCH (09:10)
[2020-07-17] MEDS: Aspirin 81 mg Enteric Coated Tablet PO SCH ×2 (09:10→20:41)
[2020-07-17] MEDS: Citalopram 20 MG TAB PO SCH (09:10)
[2020-07-17] MEDS: Metoprolol Tartrate 25 MG TAB PO SCH (09:10)
[2020-07-17] MEDS: Multivitamin W/ Minerals 1 TAB PO SCH (09:10)
[2020-07-17] MEDS: Milk Of Magnesia 30 ML UDCUP PO PRN (09:13)
--- NOTE | 2020-07-17 13:19 | PRG ---
DATE OF SERVICE: 07/17/2020 SUBJECTIVE: Mr. Louie is up in bed. He is doing well. Denies any complaints. Discharge planning underway. Discussed with Ace Suazo and plan is for him to be discharged tomorrow. The patient just had his right hip fracture operated on and it is healing nicely. He will benefit from a hospital bed as that allows him to be in positions to alleviate pain, which is not feasible with the regular bed. Also, the height adjustability helps the staff get him in and out of bed much easier with less risk of falls. He also would benefit from a wheelchair as he still is at high risk for falls and a wheelchair would help. He cannot push the wheelchair, but there are staff at [facility] who can push the wheelchair for. Please consider this as documentation for the need for both the wheelchair and his hospital bed. The patient does not have any heart failure. He does not need any leg elevation or traction. OBJECTIVE: VITAL SIGNS: He is afebrile, heart rate 62, respirations 20, oxygen saturation 96% on room air, blood pressure 166/78. CARDIOVASCULAR: S1 and S2 plus. RESPIRATORY: Normal vesicular breath sounds. ABDOMEN: Soft and nontender. Bowel sounds heard in all quadrants. EXTREMITIES: Without cyanosis or clubbing. Right hip incision is healthy. CENTRAL NERVOUS SYSTEM: Cognitive deficits. Generalized weakness. Otherwise, nonfocal. IMPRESSION: 1. Right hip fracture, status post surgical fixation. 2. Hypertension. 3. Dementia. 4. Improving deconditioning. 5. Gastroesophageal reflux disease. 6. Chronic hearing loss. PLAN: 1. Continue current medications. 2. Heart healthy diet. 3. Orthopedic precautions. 4. Remove blake tomorrow prior to discharge that will be his 14th day from the day of surgery. 5. Orders will be written for his hospital bed and a manual wheelchair. 6. Continue therapy. 7. Discussed with nursing. Job ID: [id number]
[2020-07-17] MEDS: traMADol HCl 50 MG TAB PO PRN ×2 (14:23→20:42)
[2020-07-17] MEDS: Amlodipine 5 MG TAB PO SCH (20:44)
[2020-07-18] MEDS: Acetaminophen 325 MG TAB PO SCH ×4 (00:26→18:08)
[2020-07-18] MEDS: Metoprolol Tartrate 25 MG TAB PO SCH (08:09)
[2020-07-18] MEDS: Cholecalciferol 1,000 UNITS (25 MCG) TAB PO SCH (08:09)
[2020-07-18] MEDS: Citalopram 20 MG TAB PO SCH (08:09)
[2020-07-18] MEDS: Aspirin 81 mg Enteric Coated Tablet PO SCH ×2 (08:10→21:37)
[2020-07-18] MEDS: Multivitamin W/ Minerals 1 TAB PO SCH (08:10)
[2020-07-18] MEDS: lamoTRIgine 25 MG TAB PO SCH ×2 (08:10→21:36)
[2020-07-18] MEDS: Cyanocobalamin (Vitamin B-12) 1,000 MCG TAB PO SCH (08:10)
[2020-07-18] MEDS: Folic Acid 1 MG TAB PO SCH (08:10)
[2020-07-18] MEDS: pyridOXINE 50 MG (B6) TAB PO SCH (08:10)
[2020-07-18 10:16] LABS: #Eosinphils 0.1 thou/uL (0.0-0.7); #Lymphocytes 1.2 thou/uL (1.20-3.40); #Monocytes 0.5 thou/uL (0.11-0.59); #Neutrophils 3.9 thou/uL (1.40-6.50); %Basophils 0.5 % (0.0-1.0); %Eosinophils 1.1 % (0.0-10.0); %Lymphocytes 21.1 % (21.0-51.0); %Neutrophils 68.3 % (42.0-75.0); Mean Corpuscular HGB CONC 31.3 g/dL (32.0-36.0); Mean Corpuscular Hemoglobin 31.8 pg (27.0-31.0); Mean Platelet Volume 6.3 fL (7.4-10.4); Platelet Count 310 thou/uL (130-400); RBC Distribution Width 16.7 % (11.5-14.5); Red Blood Cell (RBC) Count 2.82 mill/uL (4.70-6.10); White Blood Cell (WBC) Count 5.8 thou/uL (4.8-10.8)
[2020-07-18 10:21] LABS: ALT (SGPT) 13 U/L (8-55); AST (SGOT) 18 U/L (5-34); Albumin 3.1 g/dL (3.4-4.8); Alkaline Phosphatase 123 U/L (40-110); Anion Gap 13 mmol/L (10-20); BUN (Urea Nitrogen) 29 mg/dL (8.4-25.7); Bilirubin, Total 0.4 mg/dL (0.2-1.2); Calc. Creatinine Clearance 47 mL/min (70-130); Calcium 8.4 mg/dL (7.8-10.44); Carbon Dioxide 28 mmol/L (23-31); Chloride 97 mmol/L (98-107); Globulin 2.9 g/dL (2.4-3.5); Glucose 81 mg/dL (83-110); Potassium 3.9 mmol/L (3.5-5.1); Sodium 134 mmol/L (136-145)
--- NOTE | 2020-07-18 10:55 | CT ---
Head CT without contrast 07/18/2020: COMPARISON: 05/27/2020 HISTORY: Seizure TECHNIQUE: Axial CT imaging at 5 mm intervals from vertex through skull base without contrast FINDINGS: Imaged paranasal sinuses and mastoid air cells unremarkable. No displaced calvarial fractur e. Detailed assessment somewhat limited by head motion artifact. Prominent cerebral volume loss with prominence of the CSF containing spaces, stable. Extensive periventricular, deep, and subcortica l white matter hypodensity, evidence of small vessel disease. No intracranial hemorrhage. IMPRESSION: Stable chronic findings as detailed above. No displaced calvarial fracture or intracrania l hemorrhage.
--- NOTE | 2020-07-18 11:10 | CT ---
EXAM: CT right hip PROVIDED CLINICAL HISTORY: Pain COMPARISON: Postoperative radiographs 07/03/2020 FINDINGS: Postoperative changes of ORIF intertrochanteric right proximal femoral fracture are redemonstrated. There is displacement of the lesser trochanteric fragment as well as rotation, such that the fragment is oriented in a parasagittal direction with the base adjacent to the medial femoral subtrochanteric region and the anterior aspect immediately underlying the femoral vessels. The right femoral vein appears compressed to a mild degree between the femoral artery and lesser trochanteric fragment. There is no evidence for a new fracture. Vascular calcifications are seen. Evaluation of the soft tis sues is limited due to extensive beam hardening artifact. Heterotopic ossification is seen anterior to the proximal femoral shaft. There is no evidence for joint effusion or mass-producing hematoma. So ft tissue gas is seen within the medial thigh in the region of the adductor compartment. Degenerative changes are seen involving the right hip joint. Partially visualized conspicuous colonic fecal retention. IMPRESSION: Displacement and rotation of the lesser trochanteric fragment such that mass effect upon the femoral neurovascular bundle is possible.
[2020-07-18] MEDS ORDERED: Polyethylene Glycol 3350 17 GM Packet PO SCH (14:00)
--- NOTE | 2020-07-18 16:13 | PRG ---
DATE OF SERVICE: 07/18/2020 SUBJECTIVE: Mr. Louie apparently had an episode of vasovagal while he was on the commode straining because of the excessive constipation. He apparently passed out and did have tonic-clonic activity. He was nonresponsive for about a minute and a half, and he apparently was in a postictal state for a while. I did reassure the patient's daughter that this most likely was related to the vasovagal syncope and not a new onset seizure, but he needs to be on medications. I am going to get a CT brain as well as routine laboratories just to be safe. She also thought that the patient was really weak and cannot do the things he needs to do at [facility]. I did advise the patient's daughter to attend the case conference today and I spoke with DON to have therapy there and talked to the patient's daughter and explained the limitations and how he has been doing in the past and yesterday night was an aberration, and if not, then we will have to make alternative arrangements for him if in fact he is not able to manage his current condition and Therapy feels that this is the best he is going to get. OBJECTIVE: VITAL SIGNS: He is afebrile. Heart rate 63, respirations 18, oxygen saturation 95% on room air, blood pressure 140/68. CARDIOVASCULAR: S1 and S2 plus. RESPIRATORY: Normal vesicular breath sounds. ABDOMEN: Soft, nontender. Bowel sounds heard in all quadrants. EXTREMITIES: Without cyanosis or clubbing. CENTRAL NERVOUS SYSTEM: Cognitive deficits at present. No other changes. IMAGING STUDIES: Brain CT shows extensive periventricular deep and subcortical white matter hypodensity, evidence of small vessel disease, but no intracranial hemorrhage and no acute findings. CT of his hip does show some displacement of the lesser trochanteric fragment as well as rotation possibly causing mass effect on the femoral neurovascular bundle. We will check with therapy and see how he is doing clinically and if he is having significant pain with any weightbearing status, then we will have Orthopedic Surgery examine the patient. IMPRESSION: 1. Right hip fracture, status post surgical fixation with possible displacement of the lesser fragment. 2. Dementia. 3. Hypertension. 4. Gastroesophageal reflux disease. 5. Deconditioning. 6. Improving constipation. 7. Episode of vasovagal episode last night. PLAN: 1. Continue therapy today. Monitor for any significant pain with weightbearing status, and if so, we will have the patient be evaluated by Orthopedic Surgery. 2. Await daughter's discussion with Therapy and nursing during case conference. 3. Continue bowel regimen. 4. Nutritional support. 5. Discharge planning. 6. No family at bedside. 7. Discussed with nursing as well as DON and daughter this morning. Job ID: [id number]
[2020-07-18] MEDS: Amlodipine 5 MG TAB PO SCH (21:35)
[2020-07-18] MEDS: Ibuprofen 200 MG TAB PO PRN (21:35)
[2020-07-19] MEDS: Acetaminophen 325 MG TAB PO SCH ×5 (06:21→23:17)
[2020-07-19] MEDS: Folic Acid 1 MG TAB PO SCH (08:41)
[2020-07-19] MEDS: lamoTRIgine 25 MG TAB PO SCH ×2 (08:41→20:08)
[2020-07-19] MEDS: Citalopram 20 MG TAB PO SCH (08:41)
[2020-07-19] MEDS: Aspirin 81 mg Enteric Coated Tablet PO SCH ×2 (08:41→20:08)
[2020-07-19] MEDS: Cyanocobalamin (Vitamin B-12) 1,000 MCG TAB PO SCH (08:41)
[2020-07-19] MEDS: Metoprolol Tartrate 25 MG TAB PO SCH (08:41)
[2020-07-19] MEDS: Cholecalciferol 1,000 UNITS (25 MCG) TAB PO SCH (08:41)
[2020-07-19] MEDS: Polyethylene Glycol 3350 17 GM Packet PO SCH (08:42)
[2020-07-19] MEDS: Multivitamin W/ Minerals 1 TAB PO SCH (08:42)
[2020-07-19] MEDS: pyridOXINE 50 MG (B6) TAB PO SCH (08:42)
--- NOTE | 2020-07-19 12:47 | PRG ---
DATE OF SERVICE: 07/19/2020 SUBJECTIVE: Mr. Louie is resting in bed, waiting on lunch. Dr. Stack did review his CT and he did not make any changes to his therapy regimen. Apparently, plan is to try to work with him a little bit longer before he goes back . OBJECTIVE: VITAL SIGNS: He is afebrile, heart rate 62, respirations 18, oxygen saturation 93% on room air, and blood pressure 194/92 this morning. Again, it was not rechecked after he got his medications. CARDIOVASCULAR SYSTEM: S1 and S2 plus. RESPIRATORY SYSTEM: Normal vesicular breath sounds. ABDOMEN: Soft and nontender. Bowel sounds heard in all quadrants. EXTREMITIES: Without cyanosis or clubbing. Hip incision is healthy. CENTRAL NERVOUS SYSTEM: Cognitive deficits are present. IMPRESSION: 1. Right hip fracture, status post surgical fixation. 2. Hypertension. 3. Gastroesophageal reflux disease. 4. Dementia. 5. Hearing loss. PLAN: 1. Continue current medications. 2. Again reinforced the nursing to check his blood pressure in an hour or so if it is high to make sure it is coming back down after the medications. 3. Orthopedic precautions. 4. Physical therapy. 5. Routine laboratory values. 6. Increase Norvasc to 10 mg at night. 7. Dr. Contreras on-call starting tonight. Job ID: [id number]
[2020-07-19] MEDS: Ibuprofen 200 MG TAB PO PRN (13:51)
[2020-07-19] MEDS: Amlodipine 5 MG TAB PO SCH (20:07)
[2020-07-19] MEDS: traMADol HCl 50 MG TAB PO PRN (23:19)
[2020-07-20] MEDS: Acetaminophen 325 MG TAB PO SCH ×3 (05:26→18:17)
[2020-07-20] MEDS: Ibuprofen 200 MG TAB PO PRN (05:27)
[2020-07-20] MEDS: Polyethylene Glycol 3350 17 GM Packet PO SCH (08:24)
[2020-07-20] MEDS: Aspirin 81 mg Enteric Coated Tablet PO SCH ×2 (08:24→21:07)
[2020-07-20] MEDS: Citalopram 20 MG TAB PO SCH (08:25)
[2020-07-20] MEDS: lamoTRIgine 25 MG TAB PO SCH ×2 (08:25→21:08)
[2020-07-20] MEDS: Cyanocobalamin (Vitamin B-12) 1,000 MCG TAB PO SCH (08:25)
[2020-07-20] MEDS: Folic Acid 1 MG TAB PO SCH (08:25)
[2020-07-20] MEDS: Cholecalciferol 1,000 UNITS (25 MCG) TAB PO SCH (08:25)
[2020-07-20] MEDS: pyridOXINE 50 MG (B6) TAB PO SCH (08:26)
[2020-07-20] MEDS: Metoprolol Tartrate 25 MG TAB PO SCH (08:26)
[2020-07-20] MEDS: Multivitamin W/ Minerals 1 TAB PO SCH (08:26)
[2020-07-20] MEDS ORDERED: cloNIDine 0.1 MG TAB PO PRN (09:51)
--- NOTE | 2020-07-20 10:00 | PRG ---
DATE OF SERVICE: 07/20/2020 SUBJECTIVE: The patient is doing well, lying in bed, no acute distress. No acute events overnight. REVIEW OF SYSTEMS: Denies any cough, congestion, fever, chills, chest pain, palpitations, nausea, vomiting, or diarrhea. PHYSICAL EXAMINATION: VITAL SIGNS: Temperature 96.8, pulse 62, respirations 18, O2 saturations 93% to 94% on room air, blood pressure ranging from 186/85 to 194/93. GENERAL: Well-appearing, well-developed 85-year-old male, lying in bed, no acute distress. CARDIOVASCULAR: Regular rate and rhythm. No murmurs, gallops, or rubs. RESPIRATORY: Clear to auscultation bilaterally. No wheezes or rhonchi. ABDOMEN: Soft, nontender to palpation. Bowel sounds positive in all four quadrants. EXTREMITIES: No cyanosis or clubbing. IMPRESSION: 1. Status post right hip fracture with open reduction and internal fixation. 2. Hypertension. 3. Gastroesophageal reflux disease. 4. Dementia. 5. Hearing loss. PLAN: 1. Added spironolactone 25 mg p.o. daily. Norvasc is at 10 mg. The patient does have an allergy to hydrochlorothiazide. We will continue to monitor blood pressure. 2. Orthopedic precautions. 3. Physical therapy. 4. Routine lab values. Job ID: [id number]
[2020-07-20] MEDS ORDERED: Spironolactone 25 MG TAB PO SCH (10:15)
[2020-07-20] MEDS: traMADol HCl 50 MG TAB PO PRN (15:09)
[2020-07-20] MEDS: Amlodipine 5 MG TAB PO SCH (21:08)
[2020-07-21] MEDS: Acetaminophen 325 MG TAB PO SCH ×5 (00:01→23:26)
[2020-07-21] MEDS: Polyethylene Glycol 3350 17 GM Packet PO SCH (08:06)
[2020-07-21] MEDS: Cyanocobalamin (Vitamin B-12) 1,000 MCG TAB PO SCH (08:07)
[2020-07-21] MEDS: Cholecalciferol 1,000 UNITS (25 MCG) TAB PO SCH (08:07)
[2020-07-21] MEDS: Citalopram 20 MG TAB PO SCH (08:07)
[2020-07-21] MEDS: Metoprolol Tartrate 25 MG TAB PO SCH (08:07)
[2020-07-21] MEDS: Aspirin 81 mg Enteric Coated Tablet PO SCH ×2 (08:07→21:00)
[2020-07-21] MEDS: lamoTRIgine 25 MG TAB PO SCH ×2 (08:07→21:00)
[2020-07-21] MEDS: pyridOXINE 50 MG (B6) TAB PO SCH (08:07)
[2020-07-21] MEDS: Multivitamin W/ Minerals 1 TAB PO SCH (08:07)
[2020-07-21] MEDS: Folic Acid 1 MG TAB PO SCH (08:07)
--- NOTE | 2020-07-21 17:50 | PRG ---
DATE OF SERVICE: 07/21/2020 SUBJECTIVE: The patient's blood pressure is high again this morning. We will give his a.m. medications and we will check his blood pressure in 30 minutes. However, the patient does go back and forth between high blood pressure and running at low blood pressure in the afternoons after having his medications. We will continue to monitor this. REVIEW OF SYSTEMS: Denies any cough, congestion, fever, chills, chest pain, palpitations, nausea, vomiting, or diarrhea. OBJECTIVE: VITAL SIGNS: Temperature 97 degrees Fahrenheit, pulse 54 to 70, respirations 20, O2 sats 95% on room air, blood pressure 199/101, however, patient did have a blood pressure of 119/61 and 131/66 yesterday afternoon. GENERAL: Well-appearing, well-developed 85-year-old male lying in bed, in no acute distress. CARDIOVASCULAR: Regular rate and rhythm. No murmurs, gallops, rubs. RESPIRATIONS: Clear to auscultation bilaterally. No wheezes or rhonchi. GASTROINTESTINAL: Soft, nontender to palpation. Bowel sounds positive in all four quadrants. EXTREMITIES: No cyanosis, clubbing. IMPRESSION: 1. Status post right hip fracture with open reduction and internal fixation. 2. Hypertension. 3. Gastroesophageal reflux disease. 4. Dementia. 5. Hearing loss. PLAN: 1. Give scheduled morning antihypertensives and recheck blood pressure approximately 30 minutes later, if blood pressure still high, I have ordered clonidine p.r.n. and we can give this. Tomorrow, we will readjust blood pressure medications. 2. Orthopedic precautions. 3. PT/OT. 4. Continue monitor lab values. Job ID: [id number]
[2020-07-21] MEDS: traMADol HCl 50 MG TAB PO PRN (20:58)
[2020-07-21] MEDS: Amlodipine 5 MG TAB PO SCH (21:00)
[2020-07-22] MEDS: Acetaminophen 325 MG TAB PO SCH ×4 (05:35→23:28)
[2020-07-22] MEDS: Aspirin 81 mg Enteric Coated Tablet PO SCH ×2 (09:06→20:46)
[2020-07-22] MEDS: Polyethylene Glycol 3350 17 GM Packet PO SCH (09:06)
[2020-07-22] MEDS: Metoprolol Tartrate 25 MG TAB PO SCH (09:06)
[2020-07-22] MEDS: Cyanocobalamin (Vitamin B-12) 1,000 MCG TAB PO SCH (09:07)
[2020-07-22] MEDS: lamoTRIgine 25 MG TAB PO SCH ×2 (09:07→20:46)
[2020-07-22] MEDS: Multivitamin W/ Minerals 1 TAB PO SCH (09:07)
[2020-07-22] MEDS: Citalopram 20 MG TAB PO SCH (09:07)
[2020-07-22] MEDS: Cholecalciferol 1,000 UNITS (25 MCG) TAB PO SCH (09:07)
[2020-07-22] MEDS: pyridOXINE 50 MG (B6) TAB PO SCH (09:07)
[2020-07-22] MEDS: Folic Acid 1 MG TAB PO SCH (09:07)
[2020-07-22 19:02] VITALS: BMI 19.5
[2020-07-22] MEDS: Amlodipine 5 MG TAB PO SCH (20:45)
[2020-07-22] MEDS: traMADol HCl 50 MG TAB PO PRN (20:45)
[2020-07-23] MEDS: Acetaminophen 325 MG TAB PO SCH ×3 (04:59→17:35)
[2020-07-23] MEDS: Polyethylene Glycol 3350 17 GM Packet PO SCH (09:06)
[2020-07-23] MEDS: Cholecalciferol 1,000 UNITS (25 MCG) TAB PO SCH (09:06)
[2020-07-23] MEDS: pyridOXINE 50 MG (B6) TAB PO SCH (09:07)
[2020-07-23] MEDS: Multivitamin W/ Minerals 1 TAB PO SCH (09:07)
[2020-07-23] MEDS: Metoprolol Tartrate 25 MG TAB PO SCH (09:07)
[2020-07-23] MEDS: Aspirin 81 mg Enteric Coated Tablet PO SCH ×2 (09:07→19:33)
[2020-07-23] MEDS: Citalopram 20 MG TAB PO SCH (09:07)
[2020-07-23] MEDS: Cyanocobalamin (Vitamin B-12) 1,000 MCG TAB PO SCH (09:07)
[2020-07-23] MEDS: lamoTRIgine 25 MG TAB PO SCH ×2 (09:07→19:33)
[2020-07-23] MEDS: Folic Acid 1 MG TAB PO SCH (09:08)
--- NOTE | 2020-07-23 10:16 | PRG ---
DATE OF SERVICE: SUBJECTIVE: The patient is doing well. Blood pressure remains high, although with dips down to normal blood pressure. He is unsure if this is due to agitation or due to orthostatic drops in blood pressure. We will continue to adjust blood pressure medications for this. REVIEW OF SYSTEMS: Denies fever, chills, cough, congestion, chest pain, palpitations, nausea, vomiting, or diarrhea. PHYSICAL EXAMINATION: VITAL SIGNS: Temperature 98.3, pulse 57-62, respirations 18, O2 sats on room air, and blood pressure ranging from 125/58 to 180/84. GENERAL: Well-appearing, slightly confused 85-year-old male, lying in bed, in no acute distress. HEART: Regular rate and rhythm. No murmurs, gallops, or rubs. RESPIRATIONS: Clear to auscultation bilaterally. No wheezes or rhonchi. GI: Soft, nontender to palpation. Bowel sounds positive in all four quadrants. IMPRESSION: 1. Status post right hip fracture with open reduction and internal fixation. 2. Hypertension. 3. Gastroesophageal reflux disease. 4. Dementia. 5. Hearing loss. PLAN: 1. Start spironolactone 25 mg daily for the patient. We will continue to monitor his blood pressure. I have ordered clonidine p.r.n. for blood pressure greater than 180 as well. Continue to monitor his blood pressure and adjust as needed. 2. Orthopedic precaution. 3. PT/OT. 4. Monitor lab values. Job ID: [id number]
[2020-07-23] MEDS: traMADol HCl 50 MG TAB PO PRN (19:32)
[2020-07-23] MEDS: Amlodipine 5 MG TAB PO SCH (19:34)
[2020-07-24] MEDS: Acetaminophen 325 MG TAB PO SCH ×5 (00:10→21:12)
[2020-07-24] MEDS: Citalopram 20 MG TAB PO SCH (08:22)
[2020-07-24] MEDS: Spironolactone 25 MG TAB PO SCH (08:22)
[2020-07-24] MEDS: Cyanocobalamin (Vitamin B-12) 1,000 MCG TAB PO SCH (08:22)
[2020-07-24] MEDS: Cholecalciferol 1,000 UNITS (25 MCG) TAB PO SCH (08:22)
[2020-07-24] MEDS: Aspirin 81 mg Enteric Coated Tablet PO SCH ×2 (08:22→21:12)
[2020-07-24] MEDS: lamoTRIgine 25 MG TAB PO SCH ×2 (08:23→21:13)
[2020-07-24] MEDS: Metoprolol Tartrate 25 MG TAB PO SCH (08:23)
[2020-07-24] MEDS: Multivitamin W/ Minerals 1 TAB PO SCH (08:23)
[2020-07-24] MEDS: Folic Acid 1 MG TAB PO SCH (08:23)
[2020-07-24] MEDS: pyridOXINE 50 MG (B6) TAB PO SCH (08:24)
[2020-07-24] MEDS: Polyethylene Glycol 3350 17 GM Packet PO SCH (08:24)
[2020-07-24] MEDS ORDERED: Bisacodyl 10 MG SUPP PR PRN (12:54)
--- NOTE | 2020-07-24 13:22 | PRG ---
DATE OF SERVICE: 07/24/2020 SUBJECTIVE: Mr. Louie is resting in bed. He remains confused. He apparently is still having the urge to defecate and have a bowel movement, but is only having smears. For some reason, his Dulcolax suppository fell off his list. He is only on MiraLAX. I did order the Dulcolax suppository and I also ordered Fleet's Enema for him one time. He apparently did have a milder episode of vasovagal yesterday when he was straining. He does have knee-high JANINE hose and we will continue to monitor him closely. His blood pressure is better. OBJECTIVE: VITAL SIGNS: He is afebrile, heart rate 62, respirations 20, oxygen saturation 93% on room air, and blood pressure 150/65. CARDIOVASCULAR SYSTEM: S1 and S2 plus. RESPIRATORY SYSTEM: Normal vesicular breath sounds. ABDOMEN: Soft, nontender. Bowel sounds heard in all quadrants. EXTREMITIES: Without cyanosis or clubbing. Right hip incision is healthy. CENTRAL NERVOUS SYSTEM: Cognitive deficits are present. Otherwise, no change. IMPRESSION: 1. Right hip fracture, status post surgical fixation. 2. Hypertension. 3. Dementia. 4. History of gastroesophageal reflux disease. 5. Vasovagal episode, likely due to constipation. 6. Deconditioning. PLAN: 1. Continue current medications, but make adjustments to his bowel regimen. 2. Nutritional support. 3. Orthopedic precautions. 4. Physical therapy. 5. JANINE hose. 6. Monitor blood pressure. 7. Routine laboratory values. 8. Discharge planning. Job ID: [id number]
[2020-07-24] MEDS ORDERED: Fleet Enema 133 ML BOT PR SCH (13:30)
[2020-07-24] MEDS: Amlodipine 5 MG TAB PO SCH (21:13)
[2020-07-25 05:27] LABS: #Basophils 0.1 thou/uL (0.0-0.2); #Eosinphils 0.1 thou/uL (0.0-0.7); #Lymphocytes 1.5 thou/uL (1.20-3.40); #Monocytes 0.6 thou/uL (0.11-0.59); #Neutrophils 3.6 thou/uL (1.40-6.50); %Eosinophils 1.9 % (0.0-10.0); %Lymphocytes 25.6 % (21.0-51.0); %Monocytes 10.9 % (0.0-10.0); %Neutrophils 60.7 % (42.0-75.0); Hemoglobin 10.4 g/dL (14.0-18.0); Mean Corpuscular Hemoglobin 32.4 pg (27.0-31.0); Mean Platelet Volume 6.9 fL (7.4-10.4); Platelet Count 271 thou/uL (130-400); RBC Distribution Width 15.7 % (11.5-14.5); White Blood Cell (WBC) Count 5.9 thou/uL (4.8-10.8)
[2020-07-25] MEDS: Acetaminophen 325 MG TAB PO SCH ×4 (05:39→23:47)
[2020-07-25 05:41] LABS: Anion Gap 13 mmol/L (10-20); BUN (Urea Nitrogen) 32 mg/dL (8.4-25.7); Calc. Creatinine Clearance 52 mL/min (70-130); Carbon Dioxide 27 mmol/L (23-31); Chloride 101 mmol/L (98-107); Glucose 94 mg/dL (83-110); Potassium 3.9 mmol/L (3.5-5.1); Sodium 137 mmol/L (136-145)
[2020-07-25] MEDS: Spironolactone 25 MG TAB PO SCH (08:13)
[2020-07-25] MEDS: Aspirin 81 mg Enteric Coated Tablet PO SCH ×2 (08:13→21:00)
[2020-07-25] MEDS: Folic Acid 1 MG TAB PO SCH (08:14)
[2020-07-25] MEDS: Cholecalciferol 1,000 UNITS (25 MCG) TAB PO SCH (08:14)
[2020-07-25] MEDS: lamoTRIgine 25 MG TAB PO SCH ×2 (08:14→21:00)
[2020-07-25] MEDS: Cyanocobalamin (Vitamin B-12) 1,000 MCG TAB PO SCH (08:14)
[2020-07-25] MEDS: Citalopram 20 MG TAB PO SCH (08:14)
[2020-07-25] MEDS: Multivitamin W/ Minerals 1 TAB PO SCH (08:15)
[2020-07-25] MEDS: Polyethylene Glycol 3350 17 GM Packet PO SCH (08:15)
[2020-07-25] MEDS: Metoprolol Tartrate 25 MG TAB PO SCH (08:15)
[2020-07-25] MEDS: pyridOXINE 50 MG (B6) TAB PO SCH (08:15)
--- NOTE | 2020-07-25 13:13 | PRG ---
DATE OF SERVICE: 07/25/2020 SUBJECTIVE: Mr. Louie is up in bed, eating lunch. He apparently was agitated this morning, but he is pretty much back to his usual self. Today, he apparently had a couple of good bowel movements. No family at bedside. Discussed with a sitter in the room. OBJECTIVE: VITAL SIGNS: He is afebrile, heart rate 56, respirations 18, oxygen saturation 94% on room air, blood pressure 98/53. CARDIOVASCULAR SYSTEM: S1 and S2 plus. RESPIRATORY SYSTEM: Normal vesicular breath sounds. ABDOMEN: Soft and nontender. Bowel sounds heard in all quadrants. EXTREMITIES: Without cyanosis or clubbing. CENTRAL NERVOUS SYSTEM: Generalized weakness, cognitive deficits, otherwise nonfocal. IMPRESSION: 1. Right hip fracture, status post surgical fixation. 2. Dementia. 3. Hypertension. 4. Gastroesophageal reflux disease. 5. Resolved constipation. 6. Improving deconditioning. PLAN: 1. Continue bowel regimen. 2. Nutritional support. 3. Physical therapy. 4. Orthopedic precautions. 5. Routine laboratory values. His white count is 5.9, H and H are 10.4 and 32.4. Sodium 137, potassium 3.9, BUN and creatinine . Job ID: [id number]
[2020-07-25] MEDS: Amlodipine 5 MG TAB PO SCH (21:00)
[2020-07-26] MEDS: Acetaminophen 325 MG TAB PO SCH ×4 (05:22→23:11)
[2020-07-26] MEDS: Multivitamin W/ Minerals 1 TAB PO SCH (08:23)
[2020-07-26] MEDS: Polyethylene Glycol 3350 17 GM Packet PO SCH (08:23)
[2020-07-26] MEDS: Cyanocobalamin (Vitamin B-12) 1,000 MCG TAB PO SCH (08:23)
[2020-07-26] MEDS: pyridOXINE 50 MG (B6) TAB PO SCH (08:23)
[2020-07-26] MEDS: Folic Acid 1 MG TAB PO SCH (08:24)
[2020-07-26] MEDS: lamoTRIgine 25 MG TAB PO SCH ×2 (08:24→20:54)
[2020-07-26] MEDS: Aspirin 81 mg Enteric Coated Tablet PO SCH ×2 (08:24→20:53)
[2020-07-26] MEDS: Cholecalciferol 1,000 UNITS (25 MCG) TAB PO SCH (08:24)
[2020-07-26] MEDS: Citalopram 20 MG TAB PO SCH (08:24)
[2020-07-26] MEDS: Metoprolol Tartrate 25 MG TAB PO SCH (08:24)
--- NOTE | 2020-07-26 13:05 | PRG ---
DATE OF SERVICE: 07/26/2020 SUBJECTIVE: Mr. Louie is doing well, eating his lunch. No further issues with either vasovagal episodes. He has had multiple good bowel movements that he should continue to do well with MiraLAX daily. His tramadol has also been discontinued. Therapy feels that he is stable to be discharged. We will talk with his daughter and arrange discharge within the next couple of days. OBJECTIVE: VITAL SIGNS: He is afebrile. Heart rate 64, respirations 18, oxygen saturation 98% on room air, blood pressure 148/66. CARDIOVASCULAR SYSTEM: S1, S2 plus. RESPIRATORY SYSTEM: Normal vesicular breath sounds. ABDOMEN: Soft, nontender. Bowel sounds heard in all quadrants. EXTREMITIES: Without cyanosis or clubbing. CENTRAL NERVOUS SYSTEM: Cognitive deficits. Generalized weakness. Otherwise, nonfocal. IMPRESSION: 1. Right hip fracture, status post surgical fixation. 2. Hypertension, much improved. 3. History of gastroesophageal reflux disease. 4. Resolved constipation. 5. Dementia. 6. Improving deconditioning. PLAN: 1. Continue current medications. 2. Continue bowel regimen with MiraLAX. 3. The patient has been taken off tramadol by Orthopedic Surgery. 4. Discharge planning. 5. We will call his daughter and discuss with her. ADDENDUM: Therapy apparently recommends a bedside commode for the patient as it is going to be much easier for him to transfer straight from the bed to the bedside commode, then to go from the bed to the wheelchair to a regular toilet. They also think that with the bedside commode being raised up, it is much easier for the patient to get in and out, sit and stand due to his recent right hip fracture. The patient has been using the bedside commode here in the hospital, has been doing fine. Please consider this addendum as the [id number] documentation for his need for bedside commode. Job ID: [id number]
[2020-07-26] MEDS: Amlodipine 5 MG TAB PO SCH (20:53)
[2020-07-27] MEDS: Acetaminophen 325 MG TAB PO SCH ×3 (06:01→17:26)
[2020-07-27] MEDS: lamoTRIgine 25 MG TAB PO SCH ×2 (08:44→21:36)
[2020-07-27] MEDS: Folic Acid 1 MG TAB PO SCH (08:44)
[2020-07-27] MEDS: Polyethylene Glycol 3350 17 GM Packet PO SCH (08:44)
[2020-07-27] MEDS: Citalopram 20 MG TAB PO SCH (08:44)
[2020-07-27] MEDS: Multivitamin W/ Minerals 1 TAB PO SCH (08:45)
[2020-07-27] MEDS: Cyanocobalamin (Vitamin B-12) 1,000 MCG TAB PO SCH (08:45)
[2020-07-27] MEDS: Aspirin 81 mg Enteric Coated Tablet PO SCH ×2 (08:45→21:36)
[2020-07-27] MEDS: Metoprolol Tartrate 25 MG TAB PO SCH (08:45)
[2020-07-27] MEDS: pyridOXINE 50 MG (B6) TAB PO SCH (08:45)
[2020-07-27] MEDS: Cholecalciferol 1,000 UNITS (25 MCG) TAB PO SCH (08:45)
--- NOTE | 2020-07-27 19:22 | PRG ---
DATE OF SERVICE: 07/27/2020 SUBJECTIVE: The patient is lying in the bed, feels well, slightly confused, but in no distress. Eating well with good bowel movements. OBJECTIVE: VITAL SIGNS: Temperature is 97.2, pulse 85, respirations 20, O2 sats 96% on room air, and blood pressure is 150/68. GENERAL: The patient had bowel movement x4 today. Apparently, the patient's family has requested bedside commode and it has arrived today. LUNGS: Clear. CARDIAC: Showed regular rhythm. ABDOMEN: Soft and nontender. ASSESSMENT: 1. Resolving right hip fracture, status post open reduction and internal fixation. 2. Hypertension, controlled to goal. 3. Deconditioning, improved. 4. Constipation, resolved. 5. Dementia, stable. PLAN: Discharge to [facility] tomorrow if bedside commode has arrived. Job ID: [id number]
[2020-07-27] MEDS: Amlodipine 5 MG TAB PO SCH (21:35)
[2020-07-27] MEDS: Ibuprofen 200 MG TAB PO PRN (21:35)
[2020-07-28] MEDS: Acetaminophen 325 MG TAB PO SCH ×4 (01:01→17:03)
[2020-07-28] MEDS: Aspirin 81 mg Enteric Coated Tablet PO SCH ×2 (09:32→21:21)
[2020-07-28] MEDS: Cyanocobalamin (Vitamin B-12) 1,000 MCG TAB PO SCH (09:32)
[2020-07-28] MEDS: Multivitamin W/ Minerals 1 TAB PO SCH (09:32)
[2020-07-28] MEDS: Citalopram 20 MG TAB PO SCH (09:38)
[2020-07-28] MEDS: Metoprolol Tartrate 25 MG TAB PO SCH (09:39)
[2020-07-28] MEDS: Cholecalciferol 1,000 UNITS (25 MCG) TAB PO SCH (09:39)
[2020-07-28] MEDS: lamoTRIgine 25 MG TAB PO SCH ×2 (09:39→21:22)
[2020-07-28] MEDS: Polyethylene Glycol 3350 17 GM Packet PO SCH (09:40)
[2020-07-28] MEDS: Folic Acid 1 MG TAB PO SCH (09:40)
[2020-07-28] MEDS: pyridOXINE 50 MG (B6) TAB PO SCH (09:40)
[2020-07-28] MEDS: Amlodipine 5 MG TAB PO SCH (21:20)
[2020-07-28] MEDS: Ibuprofen 200 MG TAB PO PRN (21:21)
[2020-07-29] MEDS: Acetaminophen 325 MG TAB PO SCH ×3 (02:29→12:20)
[2020-07-29 08:06] VITALS: BP 158/77; TEMP 96.5
--- NOTE | 2020-07-29 08:43 | PRG ---
DATE OF SERVICE: 07/28/2020 SUBJECTIVE: The patient feels the same, lying in bed, in no distress. Eating well, but confused. He has been having good bowel movements. Apparently, his DME has been sent to the behavioral facility and he will be discharged tomorrow. OBJECTIVE: VITAL SIGNS: Temperature 96, pulse 66, respirations 18, O2 sats 96% on room air, blood pressure 122/60. LUNGS: Clear. CARDIAC: Regular rhythm. ABDOMEN: Soft and nontender. SKIN/EXTREMITIES: No edema, clubbing, or cyanosis. ASSESSMENT: 1. Resolving right hip fracture, status post open reduction and internal fixation. 2. Hypertension, controlled to goal. 3. Deconditioning, stabilized. 4. Constipation, resolved. 5. Dementia, stable. PLAN: Discharge to [facility] tomorrow if bedside commode has arrived. Job ID: [id number]
[2020-07-29] MEDS: Polyethylene Glycol 3350 17 GM Packet PO SCH (08:53)
[2020-07-29] MEDS: Aspirin 81 mg Enteric Coated Tablet PO SCH (08:53)
[2020-07-29] MEDS: Folic Acid 1 MG TAB PO SCH (08:54)
[2020-07-29] MEDS: lamoTRIgine 25 MG TAB PO SCH (08:54)
[2020-07-29] MEDS: Citalopram 20 MG TAB PO SCH (08:54)
[2020-07-29] MEDS: Cholecalciferol 1,000 UNITS (25 MCG) TAB PO SCH (08:54)
[2020-07-29] MEDS: Cyanocobalamin (Vitamin B-12) 1,000 MCG TAB PO SCH (08:54)
[2020-07-29] MEDS: Metoprolol Tartrate 25 MG TAB PO SCH (08:54)
[2020-07-29] MEDS: Multivitamin W/ Minerals 1 TAB PO SCH (08:55)
[2020-07-29] MEDS: pyridOXINE 50 MG (B6) TAB PO SCH (08:55)
== END 2020-07-29 15:06 | DRG 561 ==
LOC: NAV ACUTE 21:14
PROVIDERS: ADMIT Internal Medicine; ATTEND Internal Medicine
DX: S72.141D Displaced intertrochanteric fracture of right femur, subsequent encounter for closed fracture with routine healing (principal); I10 Essential (primary) hypertension; K21.9 Gastro-esophageal reflux disease without esophagitis; F03.90 Unspecified dementia, unspecified severity, without behavioral disturbance, psychotic disturbance, mood disturbance, and anxiety; H91.90 Unspecified hearing loss, unspecified ear; Z66 Do not resuscitate; R40.0 Somnolence; R53.81 Other malaise; F41.9 Anxiety disorder, unspecified; F32.9 Major depressive disorder, single episode, unspecified; W18.30XD Fall on same level, unspecified, subsequent encounter; Z98.890 Other specified postprocedural states; Z88.8 Allergy status to other drugs, medicaments and biological substances; Z79.899 Other long term (current) drug therapy; Z79.51 Long term (current) use of inhaled steroids; Z79.2 Long term (current) use of antibiotics; R55 Syncope and collapse; K59.00 Constipation, unspecified
CPT/HCPCS: 36415; 70450; 80048; 80053; 85025